=== PATIENT | female | born 1990 | race African-American/Black ===

== ENCOUNTER 2017-03-01 12:24 | Emergency (ER) | payer OTHER ==
[2017-03-01 12:33] VITALS: BP 135/76; PULSE 85; TEMP 97.5; BMI 29.2
[2017-03-01] MEDS ORDERED: ALBUTEROL SO4 2.5/IPRATROPIUM 0.5 INH SOL 3 ML VIAL.NEB. NEB ONE ×4 (13:14→14:07)
[2017-03-01] MEDS ORDERED: predniSONE 20 MG TABLET (UD) PO ONE (13:59)
--- NOTE | 2017-03-01 14:05 | PDOC ---
History of Present Illness - General Chief Complaint: Asthma Stated Complaint: SOB, WHEEZING (SOB) Time Seen by Provider: 03/01/17 13:01 History Source: Patient Exam Limitations: No Limitations - History of Present Illness Initial Comments: 03/01/17 14:00 Patient came in tearful, complaining of congestion, headache, sore throat pain, facial swelling that worsened over this past week. States has felt feverish although did not take temperature. Has a moist cough that is nonproductive. States onset of symptoms were last Saturday, 6 days ago. Has used over-the- counter medication with minimal resolved. States works at [employer], with frequent exposure to customers and also aiden and pollinated environment. Feels partially related to her allergens, partially related to severe cough and cold. 03/01/17 14:01 03/01/17 14:33 Timing/Duration: reports: constant, getting worse, week Severity: reports: moderate Possible Cause: Yes: allergen exposure, illness exposure (works in [employer]) Associated Symptoms: reports: cough, earache, fever/chills, headache, lightheadedness, sore throat Past History - Travel Traveled outside of the country in the last 30 days: No Close contact w/someone who was outside of country & ill: No - Past Medical History Allergies/Adverse Reactions: Allergies Allergy/AdvReac Type Severity Reaction Status Date / Time No Known Allergies Allergy Verified 03/01/17 12:29 Home Medications: Ambulatory Orders Albuterol Sulfate [Proventil HFA Inhaler -] 1 - 2 inh PO QID #1 inhaler Prednisone [Deltasone -] 20 mg PO BID #10 tablet 03/01/17 Asthma: Yes - Reproductive History (#): 2 Para: 0 Cervical CA: No Dysfunctional Uterine Bleeding: No Ectopic : No Endometrial CA: No Endometriosis: No Ovarian CA: No PID: No Polycystic Ovaries: No Tubal Ligation: No Spontaneous : 1 Uterine Fibroids: No Oophorectomy: No - Psycho/Social/Smoking Cessation Hx Anxiety: No Suicidal Ideation: No Smoking History: Current some day smoker Have you smoked in the past 12 months: Yes Number of Cigarettes Smoked Daily: 4 Information on smoking cessation initiated: No Hx Alcohol Use: No Drug/Substance Use Hx: No Substance Use Type: None Respiratory Specific PMHX - Complaint Specific PMHX Bronchitis: No Pneumonia: No Review of Systems - Review of Systems Able to Perform ROS?: Yes Is the patient limited Malay proficient: Yes Constitutional: Yes: Symptoms Reported, See HPI, Chills, Fever, Loss of Appetite , Malaise, Weakness HEENTM: Yes: Symptoms Reported, See HPI, Nose Congestion, Difficulty Swallowing Respiratory: Yes: Symptoms reported, See HPI, Cough, Shortness of Breath, Wheezing Cardiac (ROS): No: Symptoms Reported ABD/GI: Yes: See HPI Musculoskeletal: Yes: Symptoms Reported, See HPI Integumentary: Yes: Symptoms Reported, See HPI All Other Systems: Reviewed and Negative *Physical Exam - Vital Signs Last Vital Signs Temp Pulse Resp BP Pulse Ox 97.5 F L 85 19 135/76 97 03/01/17 12:29 03/01/17 12:29 03/01/17 12:29 03/01/17 12:29 03/01/17 12:29 - Physical Exam General Appearance: Yes: Nourished, Appropriately Dressed, Apparent Distress, Mild Distress, Moderate Distress (tearful) HEENT: positive: DONALDO, Normal ENT Inspection, TMs Normal (congested but landmarks easily visulaized ), Pharynx Normal, Pharyngeal Erythema (no exudate) , Nasal Congestion, Rhinorrhea, Sinus Tenderness Neck: positive: Tender, Supple, Lymphadenopathy (R), Lymphadenopathy (L) (mild tender ) Respiratory/Chest: positive: Lungs Clear, Normal Breath Sounds Cardiovascular: positive: Regular Rate Gastrointestinal/Abdominal: positive: Soft Musculoskeletal: positive: Normal Inspection Extremity: positive: Normal Capillary Refill, Normal Inspection, Normal Range of Motion Integumentary: positive: Normal Color, Dry, Warm Neurologic: positive: card grinder II-XII NML intact, Fully Oriented, Alert, Normal Mood/ Affect, Normal Response, Motor Strength 02/22 ED Treatment Course - ADDITIONAL ORDERS Additional order review: Laboratory Results 03/01/17 13:24 Urine HCG, Qual Negative - Medications Given in the ED: ED Medications Discontinued Medications Generic Name Dose Route Start Last Admin Trade Name Freq PRN Reason Stop Dose Admin Albuterol/Ipratropium 1 amp 03/01/17 13:14 03/01/17 13:30 Duoneb - NEB 03/01/17 13:15 1 amp ONCE ONE Administration Progress Note - Progress Note Progress Note: Rhinitis, with tight inspiratory breath sounds. We'll provide Decadron, and duo nebs and reevaluate after test *DC/Admit/Observation/Transfer Diagnosis at time of Disposition: Allergic rhinitis Qualifiers: Allergic rhinitis trigger: other Allergic rhinitis seasonality: unspecified seasonality Qualified Code(s): J30.89 - Other allergic rhinitis - Discharge Dispostion Disposition: HOME Condition at time of disposition: Stable Admit: No - Patient Instructions Printed Discharge Instructions: DI for Allergic Rhinitis Additional Instructions: Rest, drink lots of fluids: Teas, water, soups Saltwater gargles. Consider humidifier in room at night Steamy showers/seem to face break up mucus Avoid contact with allergens, exposure to pollens, close windows on a windy day Lots of handwashing and good hygiene Continue [id number] medications for symptomatic relief- may use allergic eyedrops for itching I Continue antihistamines daily until pollen season is over; Zyrtec, Claritin, Daphnie during the daytime and Benadryl at nighttime as will make sleepy Tylenol or Motrin for fever and pain Proventil pump 2 puffs 4 times a day for 5 days Prednisone 40mg daily for 5 days Followup with private physician in one to 2 days for followup Consider following up with an research kennel supervisor/filter washer for skin testing and possible allergy shots Return to emergency department for worsened symptoms, fevers, dehydration - Post Discharge Activity Work/School Note: Back to Work
[2017-03-01] MEDS ORDERED: predniSONE 20 MG TABLET (UD) ONE (14:07)
== END 2017-03-01 14:34 | disposition home or self-care (01) ==
LOC: JERFT 12:24
PROC: 3E0F7GC Introduction of Other Therapeutic Substance into Respiratory Tract, Via Natural or Artificial Opening (ICD-10-PCS; principal; 2017-03-01)
PROC: 3E0F7GC Introduction of Other Therapeutic Substance into Respiratory Tract, Via Natural or Artificial Opening (ICD-10-PCS; 2017-03-01)
DX: J30.89 Other allergic rhinitis (principal)
CPT/HCPCS: 84703; 94640; 99281-25

== ENCOUNTER 2018-10-03 16:21 | Emergency (ER) | payer OTHER ==
[2018-10-03 16:38] VITALS: BP 105/68; PULSE 100; TEMP 98.5; BMI 23.8
--- NOTE | 2018-10-03 17:36 | PDOC ---
History of Present Illness - General Chief Complaint: Rash Stated Complaint: RASH Time Seen by Provider: 10/03/18 17:31 - History of Present Illness Initial Comments: Reza Garcia is an otherwise healthy 27yo woman who presents with a rash. She reports that she believes she has ringworm on her left thigh. She says that she had it as a child, and this looks the same. The area does not itch, hurt, drain, or bleed. She additionally was told by her boyfriend that she has small lesions scattered over her back and extremities. She was not previously aware of these lesions as they are painless, and also do not itch or drain, but her boyfriend pointed them out to her recently. She has never had anything similar in the past. Ms Garcia does not have any other symptoms and denies any new lotions, perfumes , or laundry detergents. However, she did recently move into her boyfriend's grandmother's home and has been using her soap to shower. Otherwise, she has had no symptoms of infection, fevers, or other rashes. No one else at home has similar symptoms, and she has not noticed any insects at home. Past History - Past Medical History Allergies/Adverse Reactions: Allergies Allergy/AdvReac Type Severity Reaction Status Date / Time No Known Allergies Allergy Verified 03/01/17 12:29 Home Medications: Ambulatory Orders Albuterol Sulfate [Proventil HFA Inhaler -] 1 - 2 inh PO QID #1 inhaler Clotrimazole [Lotrimin 1% Cream -] 1 applic TP BID #1 tube 10/03/18 Asthma: Yes COPD: No - Reproductive History (#): 2 Para: 0 Cervical CA: No Dysfunctional Uterine Bleeding: No Ectopic : No Endometrial CA: No Endometriosis: No Ovarian CA: No PID: No Polycystic Ovaries: No Tubal Ligation: No Spontaneous : 1 Uterine Fibroids: No Oophorectomy: No - Suicide/Smoking/Psychosocial Hx Smoking History: Current every day smoker Have you smoked in the past 12 months: Yes Number of Cigarettes Smoked Daily: 6 Information on smoking cessation initiated: Yes Hx Alcohol Use: Yes Drug/Substance Use Hx: No Substance Use Type: None Review of Systems - Review of Systems Comments:: General: No fevers, no chills, no weight or appetite change, no malaise HEENT: No changes in vision, no changes in hearing, no congestion, no sore throat CV: No chest pain, no palpitations, no LE edema Pulm: No SOB, no cough, no wheezing GI: No nausea or vomiting, no change in bowel habits, no melena : No frequency, no urgency, no dysuria Musc: No back pain, no joint swelling, no recent injury Skin: See HPI Endo: No excessive thirst, no heat/cold intolerance Heme: No unusual bruising or bleeding, no swollen glands Neuro: No syncope, no numbness/tingling, no focal weakness Vasc: No claudication Psych: No recent change in mood, no SI or HI *Physical Exam - Vital Signs Last Vital Signs Temp Pulse Resp BP Pulse Ox 98.5 F 100 H 16 105/68 99 10/03/18 16:22 10/03/18 16:22 10/03/18 16:22 10/03/18 16:22 10/03/18 16:22 - Physical Exam Comments: General: Comfortable, no acute distress HEENT: PERRL, EOMI, MMM, voice normal, normal neck ROM, no LAD Cards: RRR, no murmur appreciated Pulm: Comfortable on room air, clear to auscultation bilaterally Abd: Soft, nontender, nondistended Ext: Atraumatic. No LE edema. ROM intact. Strength 5/5 and equal bilaterally Vasc: Extremities WWP. Palpable radial and pedal pulses bilaterally Skin: Normal color. Few small 3-4mm erythematous patches across body. 5-6 on back, 1 on L arm. Left thigh with half-dollar sized erythematous ring-enhancing lesion. Neuro: A&Ox3, CN grossly intact, normal speech, motor/sensory grossly intact and symmetric Psych: Mood appropriate to situation Moderate Sedation - Procedure Monitoring Vital Signs: Procedure Monitoring Vital Signs Temperature 98.5 F 10/03/18 16:22 Pulse Rate 100 H 10/03/18 16:22 Respiratory Rate 16 10/03/18 16:22 Blood Pressure 105/68 10/03/18 16:22 O2 Sat by Pulse Oximetry (%) 99 10/03/18 16:22 Medical Decision Making - Medical Decision Making 10/03/18 17:33 Reza Garcia is a 27yo otherwise healthy woman who presents with an erythematous patch on her left thigh consistent with tinea as well as a few scattered erythematous lesions on her back and extremities that could be either early/small tinea or eczematous lesions secondary to new soaps at home. - Thigh lesion likely tinea. Will prescribe antifungal cream - Back may be allergic/ezcematous or potentially small tinea lesions. Discussed follow up with dermatology with Ms Garcia. She states understanding. - Discharge home with derm follow up Discussed with Dr Hawkins. Yamel Llanes PGY1 *DC/Admit/Observation/Transfer Diagnosis at time of Disposition: Tinea corporis - Discharge Dispostion Disposition: HOME Condition at time of disposition: Stable Decision to Admit order: No - Prescriptions Prescriptions: Clotrimazole [Lotrimin 1% Cream -] 1 applic TP BID #1 tube - Referrals Referrals: Margy Verdin MD [Staff Physician] - - Patient Instructions Printed Discharge Instructions: Tips to Help You Stop Smoking, DI for Tinea Corporis Additional Instructions: Discharge Instructions: You were seen in the emergency department with a rash. The area on your left thigh is most likely tinea, or ringworm. The small spots on your back and arms are probably small allergic skin reactions, though they could also be very small and early ringworm lesions. Home Care - You have been prescribed an antifungal cream for the ringworm. You can apply this twice per day until the lesions completely resolve. This could take up to 4 -6 weeks. - The lesions on your back may be ringworm, but they may be allergic skin reactions or eczema. You can apply the antifungal cream prescribed or use an over the counter unscented lotion such as Cetaphil. Follow Up: - You have been referred to a slab inspector, Dr Verdin, for follow up. Make an appointment within the next 1-2 weeks - Seek medical care if your symptoms worsen, the rash spreads, or the rash becomes painful, starts draining fluid, or you develop fevers to 101F or shivering chills. - Post Discharge Activity
--- NOTE | 2018-10-03 17:48 | PDOC ---
Attending Attestation - Resident Resident Name: Yamel Llanes - ED Attending Attestation I have performed the following: I have examined & evaluated the patient, The case was reviewed & discussed with the resident, I agree w/resident's findings & plan, Exceptions are as noted - HPI HPI: 10/03/18 17:44 27 yo F no pmhx here with c/o rash. pt states was noticed by her boyfriend. denies that it itches currently. had few bumps on back and scaly dry rash on right inner thigh. no h/o eczema. is staying with her boyfriends family and has been using new soap. no f/c no other complaints. - Physicial Exam PE: 10/03/18 17:45 awake alert NAD lungs clear bilaterally heart rrr no mrg. abd soft nt nd. ext wwp . skin small scaly rash wtih central clearing right inner upper thigh, small maculopapular scaly rash over back scattered. - Medical Decision Making 10/03/18 17:47 plan to treat for rign worm. pt states not had period one week ago. will give antifungal cream. differential includes numular eczema or dry skin but no prior history. will refer outpt dermatologyl given number for dr. jorge.
== END 2018-10-03 18:01 | disposition home or self-care (01) ==
LOC: FER 16:21
DX: B35.4 Tinea corporis (principal); J45.909 Unspecified asthma, uncomplicated; F17.210 Nicotine dependence, cigarettes, uncomplicated
CPT/HCPCS: 99281-25

== ENCOUNTER 2018-11-16 12:05 | Emergency (ER) | payer OTHER ==
[2018-11-16 12:28] VITALS: TEMP 98.4; BMI 24.7
--- NOTE | 2018-11-16 12:54 | PDOC ---
*Physical Exam - Vital Signs Last Vital Signs Temp Pulse Resp BP Pulse Ox 98.4 F 89 18 132/80 97 11/16/18 12:25 11/16/18 12:25 11/16/18 12:25 11/16/18 12:25 11/16/18 12:25 Medical Decision Making - Medical Decision Making 11/16/18 12:53 The patient was seen and evaluated in conjunction with ROXANNE Oneal under my direct supervision, ancillary studies were reviewed. I agree with the plan as outlined by ROXANNE Oneal . .
--- NOTE | 2018-11-16 13:03 | PDOC ---
History of Present Illness - General Chief Complaint: Vaginal Bleeding Stated Complaint: ABD PAIN Time Seen by Provider: 11/16/18 12:33 History Source: Patient Exam Limitations: Clinical Condition - History of Present Illness Initial Comments: 11/16/18 12:59 Patient with no significant past medical history present with complaint of three weeks history of vaginal bleeding soaking six pads a day. Patient report regular menstrual period every month on the fifth of the month which last for 4 days and last menstrual period was October 25 and September 24 prior to that. Patient reported she never had excessive menstrual period. Patient denies nausea , vomiting, chest pain, shortness of breath or dizziness. Patient reported mild fatigue. Patient denies any other symptoms 11/16/18 13:01 Timing/Duration: other (3 weeks) Past History - Past Medical History Allergies/Adverse Reactions: Allergies Allergy/AdvReac Type Severity Reaction Status Date / Time No Known Allergies Allergy Verified 11/16/18 12:25 Home Medications: Ambulatory Orders NK [No Known Home Medication] 11/16/18 Asthma: Yes COPD: No - Reproductive History (#): 2 Para: 0 Cervical CA: No Dysfunctional Uterine Bleeding: No Ectopic : No Endometrial CA: No Endometriosis: No Ovarian CA: No PID: No Polycystic Ovaries: No Tubal Ligation: No Spontaneous : 1 Uterine Fibroids: No Oophorectomy: No - Suicide/Smoking/Psychosocial Hx Smoking History: Current every day smoker Have you smoked in the past 12 months: Yes Number of Cigarettes Smoked Daily: 6 Information on smoking cessation initiated: No 'Breaking Loose' booklet given: 10/03/18 Hx Alcohol Use: No Drug/Substance Use Hx: No Substance Use Type: None Review of Systems - Review of Systems Able to Perform ROS?: Yes Is the patient limited Slovenian proficient: No Constitutional: No: Fever, Weakness HEENTM: No: Symptoms Reported, Blurred Vision Respiratory: No: Symptoms reported Cardiac (ROS): No: Symptoms Reported, See HPI, Chest Pain, Edema, Irregular Heart Rate, Lightheadedness, Palpitations, Syncope, Chest Tightness, Other ABD/GI: No: Nausea, Vomiting, Abdominal cramping : Yes: Other (vaginal bleeding). No: Burning, Frequency, Urgency Neurological: No: Headache, Dizziness All Other Systems: Reviewed and Negative *Physical Exam - Vital Signs Last Vital Signs Temp Pulse Resp BP Pulse Ox 98.4 F 89 18 132/80 97 11/16/18 12:25 11/16/18 12:25 11/16/18 12:25 11/16/18 12:25 11/16/18 12:25 - Physical Exam Comments: 11/16/18 13:01 GENERAL: Well developed, well nourished. Awake and alert. No acute distress. NECK: Supple. Full ROM. CARDIOVASCULAR: Regular rate and rhythm. No murmurs, rubs, or gallops. Distal pulses are 2+ and symmetric. PULMONARY: No evidence of respiratory distress. Lungs clear to auscultation bilaterally. No wheezing, rales or rhonchi. ABDOMINAL: Soft. Non-tender. Non-distended. No rebound or guarding. No organomegaly. Normoactive bowel sounds. MUSCULOSKELETAL Normal range of motion at all joints. : scant amount of dark blood in vaginal vault. no active bleeding. no pooling of blood in vault. no visible lesions. no CMT SKIN: Warm and dry. no cyanosis NEUROLOGICAL: Alert, awake, appropriate. Gait is normal without ataxia. PSYCHIATRIC: Cooperative. Good eye contact. Appropriate mood General Appearance: Yes: Nourished, Appropriately Dressed. No: Apparent Distress Moderate Sedation - Procedure Monitoring Vital Signs: Procedure Monitoring Vital Signs Temperature 98.4 F 11/16/18 12:25 Pulse Rate 89 11/16/18 12:25 Respiratory Rate 18 11/16/18 12:25 Blood Pressure 132/80 11/16/18 12:25 O2 Sat by Pulse Oximetry (%) 97 11/16/18 12:25 ED Treatment Course - LABORATORY CBC & Chemistry Diagram: 11/16/18 12:52 11/16/18 12:52 Medical Decision Making - Medical Decision Making 11/16/18 13:03 Patient with no significant past medical history present with complaint of 3 weeks history of vaginal bleeding soaking 3 pads. Patient with no past history of irregular menstrual period. Exam significant for scant amount of dark blood in vaginal vault. no active bleeding. no pooling of blood in vault. no visible lesions. no CMT. Normal lungs and cardiac exam. CBC, CMP, type and screen and urine tests ordered. Patient with no active bleeding now. Treat based on lab results 11/16/18 13:37 CBC and chemistry labs unremarkable. Urine test positive. Beta hCG lab ordered. Transvaginal ultrasound ordered to rule out ectopic .Patient hemodynamically stable. 11/16/18 14:57 Beta hCG is 39. Transvaginal ultrasound unremarkable with no IUP or adnexal mass. Patient hemodynamically stable for discharge to follow-up in 48 hours for repeat beta hCG with strict instructions. Plan discussed with patient and patient agrees with plan. Patient reported mild cramping pain requests medication for abdominal cramping. Tramadol by mouth ordered for pain. Patient is stable for discharge *DC/Admit/Observation/Transfer Diagnosis at time of Disposition: Complete - Discharge Dispostion Disposition: HOME Condition at time of disposition: Stable Decision to Admit order: No - Referrals Referrals: Mo Martin MD [Staff Physician] - - Patient Instructions Printed Discharge Instructions: Miscarriage Additional Instructions: Your labs was normal except positive test. There ultrasound did not find anything in the uterus. This could be due to either miscarriage or early . Follow-up referred to [facility] in 2 days for repeat blood work or come back to emergency room for repeat blood work for hormone level. Take Tylenol as needed for pain., To emergency room if worsening vaginal bleeding. - Post Discharge Activity
[2018-11-16 13:07] LABS: BASO % 0.5 % (0-2.0); EOS % 0.9 % (0-4.5); HEMATOCRIT 44.8 % (32.4-45.2); HEMOGLOBIN 15.8 GM/dL (10.7-15.3); LYMPH % 19.5 % (8-40); MCH 33.4 pg (25.7-33.7); MCHC 35.3 g/dl (32.0-36.0); MEAN CELL VOLUME 94.5 fl (80-96); MEAN PLT VOLUME 7.7 fl (7.5-11.1); MONO % 7.2 % (3.8-10.2); NEUT % 71.9 % (42.8-82.8); PLATELET COUNT 223 K/MM3 (134-434); RBC 4.74 M/mm3 (3.60-5.2); RDW 13.9 % (11.6-15.6); WHITE BLOOD COUNT 8.1 K/mm3 (4.0-10.0)
[2018-11-16 13:08] LABS: URINE APPEARANCE CLEAR; URINE BILIRUBIN NEGATIVE (<2.0 mg/dL); URINE COLOR YELLOW; URINE GLUCOSE (UA) NEGATIVE (NEGATIVE); URINE KETONE NEGATIVE (NEGATIVE); URINE LEUK ESTERASE TRACE (NEGATIVE); URINE NITRITE NEGATIVE (NEGATIVE); URINE PROTEIN NEGATIVE (NEGATIVE); URINE UROBILINOGEN NEGATIVE mg/dL (0.2-1.0)
[2018-11-16 13:19] LABS: EPI CELLS RARE /HPF (FEW); URINE BACTERIA RARE /hpf (NONE SEEN); URINE MUCUS RARE
[2018-11-16 13:32] LABS: ALBUMIN 4.3 g/dl (3.4-5.0); ALK PHOS 68 U/L (45-117); ANION GAP 6 MMOL/L (8-16); BILIRUBIN,TOTAL 0.3 mg/dL (0.2-1); BLOOD UREA NITROGEN 11 mg/dL (7-18); CHLORIDE 107 mmol/L (98-107); CO2 27 mmol/L (21-32); CREATININE 0.8 mg/dL (0.55-1.3); GLUCOSE,RANDOM 86 mg/dL (74-106); POTASSIUM 3.8 mmol/L (3.5-5.1); SGOT/AST 17 U/L (15-37); SGPT/ALT 25 U/L (13-61); SODIUM 140 mmol/L (136-145); TOT PROT 8.1 g/dl (6.4-8.2)
[2018-11-16] MEDS ORDERED: traMADol HCL 50 MG TABLET PO ONE (14:24)
[2018-11-16] MEDS ORDERED: traMADol HCL 50 MG TABLET ONE (14:41)
[2018-11-16 14:56] VITALS: BP 136/55; PULSE 80
== END 2018-11-16 14:54 | disposition home or self-care (01) ==
LOC: JER 12:05
DX: O26.891 Other specified pregnancy related conditions, first trimester (principal); O03.9 Complete or unspecified spontaneous abortion without complication; Z3A.01 Less than 8 weeks gestation of pregnancy
CPT/HCPCS: 36415; 76817-TC; 80053; 81003; 81015; 84702; 84703; 85025; 86850; 86900; 86901; 99283-25

== ENCOUNTER 2018-12-27 17:42 | Emergency (ER) | payer OTHER ==
[2018-12-27 17:53] VITALS: BP 124/80; PULSE 86; BMI 24.7
[2018-12-27 18:53] LABS: HCG,QUALITATIVE URINE Negative
[2018-12-27 18:55] LABS: URINE APPEARANCE CLEAR; URINE BILIRUBIN NEGATIVE (<2.0 mg/dL); URINE COLOR YELLOW; URINE GLUCOSE (UA) NEGATIVE (NEGATIVE); URINE KETONE NEGATIVE (NEGATIVE); URINE LEUK ESTERASE NEGATIVE (NEGATIVE); URINE NITRITE NEGATIVE (NEGATIVE); URINE PROTEIN NEGATIVE (NEGATIVE)
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
== END 2018-12-27 20:41 | disposition home or self-care (01) ==
LOC: JERFT 17:42 → JER 17:42 → JERFT 20:41
DX: S29.8XXA Other specified injuries of thorax, initial encounter (principal); R07.81 Pleurodynia; Y04.2XXA Assault by strike against or bumped into by another person, initial encounter; Y93.89 Activity, other specified; Y92.038 Other place in apartment as the place of occurrence of the external cause; Y99.8 Other external cause status; Y07.03 Male partner, perpetrator of maltreatment and neglect
CPT/HCPCS: 71046-TC-FY; 71101-TC-LT-FY; 81003; 84703; 99281-25

== ENCOUNTER 2019-04-01 02:47 | Emergency (ER) | payer OTHER | END 2019-04-01 07:25 | disposition home or self-care (01) | LOC: JER 02:47 ==

== ENCOUNTER 2019-07-10 00:56 | Emergency (ER) | payer OTHER ==
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
[2019-07-10 01:17] VITALS: BP 133/82; PULSE 96; TEMP 97.9; BMI 23.8
[2019-07-10] MEDS ORDERED: CYCLOBENZAPRINE HCL 10 MG TABLET (FP) PO ONE (01:36)
[2019-07-10] MEDS ORDERED: ACETAMINOPHEN 325 MG TABLET (FP) PO ONE (01:36)
[2019-07-10] MEDS ORDERED: METHOCARBAMOL 500 MG TABLET PO ONE (01:41)
[2019-07-10] MEDS ORDERED: METHOCARBAMOL 500 MG TABLET ONE (01:58)
[2019-07-10] MEDS ORDERED: ACETAMINOPHEN 325 MG TABLET (FP) ONE (01:58)
[2019-07-10] MEDS ORDERED: KETOROLAC TROMETHAMINE 30 MG/1 ML VIAL IM ONE (02:50)
[2019-07-10] MEDS ORDERED: DIPHTH,PERTUSS(ACELL),TET 0.5 ML DISP.SYRIN IM ONE (02:50)
[2019-07-10] MEDS ORDERED: KETOROLAC TROMETHAMINE 30 MG/1 ML VIAL ONE (03:02)
[2019-07-10] MEDS ORDERED: BACITRACIN 15 GM TUBE TOPICAL OINTMENT TP ONE (03:08)
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
== END 2019-07-10 03:40 | disposition home or self-care (01) ==
LOC: JER 00:56
PROC: 3E0234Z Introduction of Serum, Toxoid and Vaccine into Muscle, Percutaneous Approach (ICD-10-PCS; principal; 2019-07-10)
PROC: 3E0333Z Introduction of Anti-inflammatory into Peripheral Vein, Percutaneous Approach (ICD-10-PCS; 2019-07-10)
DX: T76.11XA Adult physical abuse, suspected, initial encounter (principal); S01.81XA Laceration without foreign body of other part of head, initial encounter; Y07.03 Male partner, perpetrator of maltreatment and neglect
CPT/HCPCS: 70450-TC; 84703; 90471; 90715; 96372; 99283-25

== ENCOUNTER 2019-10-21 11:06 | Emergency (ER) | payer OTHER ==
[2019-10-21 11:16] VITALS: BP 123/76; PULSE 90; TEMP 98.2; BMI 23.8
[2019-10-21] MEDS ORDERED: TETANUS AND DIPHTHERIA TOXOID 0.5 ML DISP.SYRIN IM ONE (11:25)
[2019-10-21] MEDS ORDERED: DIPHTH,PERTUSS(ACELL),TET 0.5 ML DISP.SYRIN IM ONE (11:30)
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
== END 2019-10-21 12:05 | disposition home or self-care (01) ==
LOC: JERFT 11:06
PROC: 0HQFXZZ Repair Right Hand Skin, External Approach (ICD-10-PCS; principal; 2019-10-21)
PROC: 3E0234Z Introduction of Serum, Toxoid and Vaccine into Muscle, Percutaneous Approach (ICD-10-PCS; 2019-10-21)
DX: S61.214A Laceration without foreign body of right ring finger without damage to nail, initial encounter (principal); W25.XXXA Contact with sharp glass, initial encounter; Y93.89 Activity, other specified; Y92.89 Other specified places as the place of occurrence of the external cause; F11.23 Opioid dependence with withdrawal
CPT/HCPCS: 73140-TC-RT-FY; 99281-25

== ENCOUNTER 2020-09-08 12:37 | Emergency (ER) | payer OTHER ==
[2020-09-08 13:02] VITALS: BP 109/48; PULSE 88; TEMP 98.6; BMI 26.5
[2020-09-08] MEDS ORDERED: ALBUTEROL SO4 2.5/IPRATROPIUM 0.5 INH SOL 3 ML VIAL.NEB. NEB ONE ×3 (13:29→13:30)
== END 2020-09-08 14:43 | disposition home or self-care (01) ==
LOC: JER 12:37
PROC: 3E0F7GC Introduction of Other Therapeutic Substance into Respiratory Tract, Via Natural or Artificial Opening (ICD-10-PCS; principal; 2020-09-08)
DX: J45.21 Mild intermittent asthma with (acute) exacerbation (principal)
CPT/HCPCS: 99283-25

== ENCOUNTER 2021-08-25 15:36 | Emergency (ER) | payer OTHER ==
[2021-08-25 15:44] VITALS: BP 107/68; PULSE 82; TEMP 98.3; BMI 26.5
[2021-08-25 16:35] LABS: BASO % 1.8 % (0-2.0); EOS % 2.7 % (0-4.5); HEMATOCRIT 37.4 % (32.4-45.2); HEMOGLOBIN 12.5 GM/dl (10.7-15.3); LYMPH % 16.7 % (8-40); MCH 30.4 pg (25.7-33.7); MCHC 33.4 g/dl (32.0-36.0); MEAN CELL VOLUME 90.9 fl (80-96); MEAN PLT VOLUME 7.7 fl (7.5-11.1); MONO % 6.9 % (3.8-10.2); NEUT % 71.9 % (42.8-82.8); PLATELET COUNT 271 10^3/uL (134-434); RBC 4.11 M/mm3 (3.60-5.2); RDW 12.8 % (11.6-15.6); WHITE BLOOD COUNT 10.6 K/mm3 (4.0-10.8)
[2021-08-25 16:48] LABS: ALBUMIN 3.9 g/dl (3.4-5.0); BILIRUBIN,TOTAL 0.5 mg/dl (0.2-1); CALCIUM 8.3 mg/dl (8.5-10); CREATININE 0.6 mg/dl (0.55-1.3)
[2021-08-25 19:28] LABS: EPITHELIAL CELLS FEW /hpf
== END 2021-08-25 16:58 | disposition home or self-care (01) ==
LOC: FER 15:36
DX: Z20.2 Contact with and (suspected) exposure to infections with a predominantly sexual mode of transmission (principal)
CPT/HCPCS: 36415; 80053; 81003; 81015; 84703; 85025; 87491; 87591; 99283-25

== ENCOUNTER 2023-10-31 20:39 | Emergency (ER) | payer OTHER ==
[2023-10-31 20:59] VITALS: BP 124/70; PULSE 97; RESP 20; TEMP 97.9; BMI 29.2
== END 2023-10-31 23:02 | disposition home or self-care (01) ==
LOC: JER 20:39
DX: T40.1X1A Poisoning by heroin, accidental (unintentional), initial encounter (principal); R40.20 Unspecified coma
CPT/HCPCS: 99285-25